=== PATIENT | male | born 1975 | race Two or more races ===

== ENCOUNTER 2017-12-08 01:01 | Emergency (ER) | payer MEDICAID ==
[~2017-12-08] VITALS: Ht 182.9 cm; Wt 108.9 kg
--- NOTE | 2017-12-08 01:10 | NUR ---
Pt ambulated to ER with steady gait, c/o shortness of breath and dizziness, later admitted to also having chest pain. Pt reports he was at a friend's barbecue and snorted some cocaine. Pt appears to be anxious.
--- NOTE | 2017-12-08 01:10 | NUR ---
Dr. Alvarez at bedside for MSE.
[2017-12-08] MEDS ORDERED: ASPIRIN 325 MG TABLET ONE (01:15)
[2017-12-08] MEDS ORDERED: LORAZEPAM 1 MG TABLET ONE (01:16)
[2017-12-08] MEDS: IV NORMAL SALINE 1000 ML BAG IV ONE (01:17)
[2017-12-08] MEDS: NITROGLYCERIN 0.4 MG/TAB BOTTLE SL ONE (01:17)
[2017-12-08] MEDS: ASPIRIN 325 MG TABLET PO ONE (01:17)
[2017-12-08] MEDS ORDERED: NITROGLYCERIN 0.4 MG/TAB BOTTLE SL ONE (01:17)
[2017-12-08] MEDS: LORAZEPAM 0.5 MG TABLET PO ONE (01:17)
[2017-12-08 01:23] LABS: BASOPHILS # (AUTO) 0.1 K/uL (0.0-8.0); BASOPHILS % (AUTO) 0.6 % (0.0-2.0); EOSINOPHILS # (AUTO) 0.1 K/uL (0.0-0.7); EOSINOPHILS % (AUTO) 0.5 % (0.0-7.0); HEMATOCRIT 47.1 % (36.7-47.1); HEMOGLOBIN 16.3 g/dL (12.5-16.3); LYMPHOCYTES # (AUTO) 2.6 K/uL (20.0-40.0); LYMPHOCYTES % (AUTO) 21.7 % (20.5-51.5); MEAN CORPUSCULAR HGB CONC 35 g/dL (32.5-36.3); MEAN CORPUSCULAR VOLUME 84.1 fL (73.0-96.2); MONOCYTES % (AUTO) 8.2 % (0.0-11.0); NEUTROPHILS # (AUTO) 8.4 K/uL (1.8-8.9); PLATELET COUNT (AUTO) 274 K/uL (152-348); RED BLOOD CELL COUNT(AUTO) 5.61 MIL/uL (4.06-5.63); WHITE BLOOD COUNT (AUTO) 12.1 K/uL (3.6-10.2)
--- NOTE | 2017-12-08 01:25 | NUR ---
Xray at bedside.
--- NOTE | 2017-12-08 01:31 | NUR ---
Pt states chestpain a little better 11/18 now. Blood pressure rechecked 187/127.
[2017-12-08 01:40] LABS: BILIRUBIN,DIRECT 0.2 mg/dL (0.0-0.2); BILIRUBIN,TOTAL 1.1 mg/dL (0.2-1.0); CREATININE 1.1 mg/dL (0.6-1.3); POTASSIUM 3.6 mmol/L (3.5-5.1); TOTAL PROTEIN, SERUM 8.5 g/dL (6.4-8.2)
--- NOTE | 2017-12-08 01:41 | NUR ---
Rechecked pt's blood pressure 195/112. notified.
[2017-12-08] MEDS: CLONIDINE HCL 0.2 MG TABLET PO ONE (01:45)
[2017-12-08] MEDS ORDERED: CLONIDINE HCL 0.2 MG TABLET ONE (01:46)
--- NOTE | 2017-12-08 01:54 | NUR ---
Patient states chestpain went away.
--- NOTE | 2017-12-08 02:28 | NUR ---
Patient discharged to home in stable conditon. Written and verbal after care instructions given. Patient verbalizes understanding of instructions. Patient ambulated out of ER with steady gait, no acute signs of distress, VSS, all belongings taken, IV site discontinued.
[2017-12-08 02:29] VITALS: BP 165/106
== END 2017-12-08 02:30 | disposition home or self-care (01) ==
LOC: ER 01:07
DX: I10 Essential (primary) hypertension (principal); R07.89 Other chest pain; F12.10 Cannabis abuse, uncomplicated
CPT/HCPCS: 36415; 71045; 80048; 80076; 84484; 85025; 85730; 93005; 99285; A4663; J7030; 70030-TC